=== PATIENT | male | born 1980 | race Caucasian/White ===

== ENCOUNTER 2019-04-26 22:15 | Emergency (ER) | payer MEDICAID ==
[~2019-04-26] VITALS: Ht 175.3 cm; Wt 99.0 kg
[~2019-04-26 22:15] MED LIST: theraflu
[2019-04-26] MEDS ORDERED: ONDANSETRON HCL 4MG/2ML INJ IV STA (23:36)
[2019-04-26] MEDS ORDERED: KETOROLAC 30MG/ML VIAL IV STA (23:36)
[2019-04-26] MEDS ORDERED: SODIUM CHLORIDE 0.9% 1,000 ML IV ONE (23:36)
[2019-04-26] MEDS ORDERED: LORAZEPAM 2MG/ML CPJ IV ONE (23:45)
[2019-04-27 00:03] LABS: EOSINOPHILS % 0.8 % (0.0-5.0); RED BLOOD CELL COUNT 4.41 mill/uL (4.7-6.1)
[2019-04-27 00:09] LABS: CHLORIDE 107 mEq/L (98-107)
[2019-04-27 00:12] LABS: ETHANOL BLOOD < 10 mg/dL
[2019-04-27 00:17] LABS: D-DIMER < 0.19 mg/L FEU (<0.50); INR 1.2; PARTIAL THROMBOPLASTIN TIME 28.7 sec (23.4-31.0)
[2019-04-27 00:32] LABS: BASOPHILS % 0.6 % (0.0-2.0); HEMOGLOBIN. 14.4 g/dL (14.0-18.0); LYMPHOCYTES % 14.6 % (20.0-50.0); MEAN CORPUSCULAR HEMOGLOBIN 32.6 pg (28.0-32.0); MEAN CORPUSCULAR VOLUME 90.9 fL (80.0-94.0); MEAN PLATELET VOLUME 8.8 fl (7.4-10.4); PLATELET 259 x1000/uL (130-400)
[2019-04-27 00:36] LABS: CLARITY URINE CLEAR (CLEAR); COLOR URINE YELLOW (YELLOW); KETONES URINE NEGATIVE (NEGATIVE); LEUKOCYTE ESTERASE URINE NEGATIVE (NEGATIVE); NITRITE URINE NEGATIVE (NEGATIVE); OCCULT BLOOD URINE NEGATIVE (NEGATIVE); PH URINE 7.5 (4.5-8.0); PROTEIN URINE NEGATIVE (NEGATIVE); SPECIFIC GRAVITY URINE 1.023 (1.005-1.030); UROBILINOGEN URINE 0.2 E.U./dL (0.2-1.0)
[2019-04-27 00:55] LABS: METHADONE URINE SCREEN NEGATIVE (NEGATIVE); OPIATES URINE SCREEN NEGATIVE (NEGATIVE)
[2019-04-27 00:56] VITALS: BP 128/69
[2019-04-27 00:56] LABS: *AMPHETAMINES SCREEN URINE NEGATIVE (NEGATIVE); *BARBITURATES SCREEN URINE NEGATIVE (NEGATIVE); *COCAINE SCREEN URINE NEGATIVE (NEGATIVE); CANNABINOID URINE SCREEN PRESUMTIVE POSITIVE (NEGATIVE); PHENCYCLIDINE URINE SCREEN NEGATIVE (NEGATIVE)
[2019-04-27 00:57] LABS: *BENZODIAZEPINES SCREEN URINE NEGATIVE (NEGATIVE)
== END 2019-04-27 02:36 | disposition home or self-care (01) ==
LOC: ER 22:15
DX: M62.838 Other muscle spasm (principal); R07.89 Other chest pain; F12.10 Cannabis abuse, uncomplicated; J45.909 Unspecified asthma, uncomplicated
CPT/HCPCS: 36415; 71045; 80053; 80305; 80320; 81003; 83690; 83880; 84484; 85025; 85379; 85610; 85730; 93005; 96374; 96375; 99284; J1885; J2060; J2405; J7030; G0480

== ENCOUNTER 2020-10-26 05:13 | Emergency (ER) | payer MEDICAID, OTHER ==
[~2020-10-26] VITALS: Ht 175.3 cm; Wt 108.0 kg
[2020-10-26] MEDS ORDERED: DEXAMETHASONE 10 MG/ML VIAL IM ONE (06:30)
[2020-10-26] MEDS ORDERED: SODIUM CHLORIDE 0.9% 1,000 ML IV SCH (06:30)
[2020-10-26] MEDS ORDERED: FAMOTIDINE 20MG TABLET PO ONE (06:30)
[2020-10-26] MEDS ORDERED: EPINEPHRINE 1:1000 1 MG/ML AMP IM ONE (06:30)
[2020-10-26] MEDS ORDERED: DIPHENHYDRAMINE 50MG CAPSULE PO ONE (06:30)
[2020-10-26 07:34] LABS: BASOPHILS % 0.2 % (0.0-2.0); EOSINOPHILS % 0.1 % (0.0-5.0); HEMATOCRIT. 44.6 % (42.0-52.0); HEMOGLOBIN. 15.2 g/dL (14.0-18.0); LYMPHOCYTES % 9.7 % (20.0-50.0); MEAN CORPUSCULAR HEMOGLOBIN 30.6 pg (28.0-32.0); MEAN CORPUSCULAR VOLUME 89.7 fL (80.0-94.0); MEAN PLATELET VOLUME 8.7 fl (7.4-10.4); MONOCYTES % 8.5 % (2.0-8.0); NEUTROPHILS % 81.5 % (40.0-76.0); PLATELET 282 x1000/uL (130-400); RED BLOOD CELL COUNT 4.97 mill/uL (4.7-6.1); RED CELL DISTRIBUTION WIDTH 13.1 % (11.6-14.6)
[2020-10-26 07:39] LABS: CHLORIDE 98 mEq/L (98-107)
[2020-10-26 09:48] VITALS: BP 110/69
[2020-10-26] MEDS ORDERED: POTASSIUM CHLORIDE 20MEQ TABLET SR PO ONE (10:00)
== END 2020-10-26 10:16 | disposition home or self-care (01) ==
LOC: ER 05:13
DX: T78.40XA Allergy, unspecified, initial encounter (principal); E87.6 Hypokalemia; R74.01 Elevation of levels of liver transaminase levels; F12.10 Cannabis abuse, uncomplicated; J45.909 Unspecified asthma, uncomplicated; X58.XXXA Exposure to other specified factors, initial encounter
CPT/HCPCS: 36415; 80053; 85025; 96372; 99284; J1100; J3490; Q0163

== ENCOUNTER 2022-01-14 18:34 | Emergency (ER) | payer OTHER ==
[~2022-01-14] VITALS: Ht 177.8 cm; Wt 104.0 kg
[2022-01-14 21:15] LABS: BASOPHILS % 0.4 % (0.0-2.0); EOSINOPHILS % 3.3 % (0.0-5.0); HEMATOCRIT. 43.5 % (42.0-52.0); HEMOGLOBIN. 14.7 g/dL (14.0-18.0); LYMPHOCYTES % 25.5 % (20.0-50.0); MEAN CORPUSCULAR HEMOGLOBIN 30.2 pg (28.0-32.0); MEAN CORPUSCULAR VOLUME 89.4 fL (80.0-94.0); MEAN PLATELET VOLUME 8.3 fl (7.4-10.4); MONOCYTES % 7.6 % (2.0-8.0); NEUTROPHILS % 63.2 % (40.0-76.0); PLATELET 255 x1000/uL (130-400); RED BLOOD CELL COUNT 4.87 mill/uL (4.7-6.1); RED CELL DISTRIBUTION WIDTH 13.6 % (11.6-14.6)
[2022-01-14 21:23] LABS: CHLORIDE 104 mEq/L (98-107)
[2022-01-14] MEDS ORDERED: KETOROLAC 15MG/ML VIAL IV ONE (23:30)
[2022-01-14 23:35] VITALS: BP 153/91
[2022-01-15] MEDS ORDERED: IOHEXOL-300 100 ML BOTTLE ONE (02:31)
== END 2022-01-15 02:43 | disposition home or self-care (01) ==
LOC: ER 18:34
DX: K42.9 Umbilical hernia without obstruction or gangrene (principal); J45.909 Unspecified asthma, uncomplicated; F12.10 Cannabis abuse, uncomplicated
CPT/HCPCS: 36415; 74177; 80053; 83690; 85025; 93005; 96374; 99285; J1885; Q9967